=== PATIENT | female | born 1980 | race Caucasian/White ===

== ENCOUNTER 2018-05-25 10:32 | Inpatient (IN) | payer OTHER ==
[2018-05-25] MEDS ORDERED: LACTATED RINGER'S 500 ML IV (10:55)
[2018-05-25] MEDS ORDERED: MISOPROSTOL 200 MCG TAB PR ×2 (11:00→17:30)
[2018-05-25] MEDS ORDERED: OXYTOCIN 30 UNITS/LR 500 ML IV ×2 (11:00→17:30)
[2018-05-25] MEDS ORDERED: METHYLERGONOVINE 0.2 MG INJ IM ×2 (11:00→17:30)
[2018-05-25] MEDS ORDERED: CARBOPROST 250 MCG INJ IM ×2 (11:00→17:30)
[2018-05-25 11:42] LABS: WHITE BLOOD COUNT 8.9 10^3/ul (4.8-10.8)
[2018-05-25 11:43] LABS: ABNORMAL IP MESSAGE 1; HEMATOCRIT 34.2 % (37.0-47.0); HEMOGLOBIN 11.2 g/dl (12.0-16.0); MEAN CORPUSCULAR HEMOGLOBIN 29.9 pg (29.0-33.0); MEAN CORPUSCULAR HGB CONC 32.7 g/dl (32.0-37.0); MEAN CORPUSCULAR VOLUME 91.2 fl (82.0-101.0); MEAN PLATELET VOLUME 10.5 fl (7.4-10.4); PLATELET COUNT 185 10^3/UL (140-415); RED BLOOD COUNT 3.75 10^6/ul (4.20-5.40); RED CELL DISTRIBUTION WIDTH 14.2 % (11.5-14.5)
[2018-05-25 11:50] LABS: ADD MAN DIFF? YES; POSITIVE DIFF @See below
[2018-05-25 12:07] LABS: PROTIME 12.2 Sec (11.9-14.9)
[2018-05-25 12:08] LABS: PARTIAL THROMBOPLASTIN TIME 27.4 Sec (25.0-35.0)
[2018-05-25] MEDS: LACTATED RINGER'S 1,000 ML IV ×3 (12:28→17:23)
[2018-05-25 12:31] LABS: HEPATITIS B SURFACE ANTIGEN NEGATIVE (NEGATIVE)
[2018-05-25] MEDS: CITRIC ACID/SODIUM CITRATE 15 ML CUP PO (12:44)
[2018-05-25 13:09] LABS: BAND NEUTROPHILS #M 0.1 10^3/ul (0.0-0.6); BAND NEUTROPHILS % (M) 2 % (0-4); LYMPHOCYTES % (M) 12 % (15-51); MONOCYTE #M 0.1 10^3/ul (0.3-0.9); MONOCYTES % (M) 2 % (0-11); MYELOCYTES #M 0.1 10^3/ul (0.0-0.0); MYELOCYTES % (M) 2 % (0-0); PLATELET ESTIMATE NORMAL; POLYCHROMASIA 1+ (0-0); SEG NEUT #M 7.3 10^3/ul (1.6-7.5); SEGMENTED NEUTROPHILS (M) % 82 % (39-77); SMUDGE%M 12 % (0-0)
[2018-05-25] MEDS: CEFAZOLIN 2 GM/50 ML (PMX) 50 ML IV (13:55)
[2018-05-25] MEDS ORDERED: BUPIVACAINE 0.75%/DEXT (SPINAL) 2 ML INJ (14:33)
[2018-05-25] MEDS ORDERED: morphine SULFATE/PF (10 MG/10 ML) INJ (14:33)
[2018-05-25] MEDS ORDERED: ONDANSETRON 4 MG INJ (14:33)
[2018-05-25] MEDS ORDERED: METOCLOPRAMIDE 10 MG INJ (14:33)
[2018-05-25] MEDS ORDERED: KETOROLAC 30 MG INJ (14:33)
[2018-05-25] MEDS ORDERED: FENTAnyl 50 MCG/ML VIAL (14:35)
[2018-05-25] MEDS ORDERED: MEPERIDINE 25 MG INJ IV (15:30)
[2018-05-25] MEDS ORDERED: DIPHENHYDRAMINE 50 MG INJ IV ×2 (15:30)
[2018-05-25] MEDS ORDERED: morphine (1 MG/ML) 10ML SYRINGE IV ×3 (15:30)
[2018-05-25] MEDS ORDERED: morphine 2 MG INJ IV ×2 (15:30)
[2018-05-25] MEDS ORDERED: ONDANSETRON 4 MG INJ IV ×2 (15:30)
[2018-05-25] MEDS ORDERED: NALOXONE (0.4 MG/ML) INJ IV (15:30)
[2018-05-25] MEDS: KETOROLAC 30 MG INJ IV (16:26)
[2018-05-25] MEDS: OXYTOCIN 30 UNITS/LR 500 ML IV ×2 (16:57→17:23)
[2018-05-25] MEDS: morphine 2 MG INJ IV (17:17)
[2018-05-25] MEDS ORDERED: LANOLIN 7 GM TUBE TOP (17:30)
[2018-05-25] MEDS ORDERED: OXYCODONE/ACETAMINOPHEN (5/325) TAB PO (17:30)
[2018-05-25] MEDS: SENNA/DOCUSATE NA (8.6MG/50MG) TAB PO (20:49)
[2018-05-25 21:41] LABS: RAPID PLASMA REAGIN NONREACTIVE (NR)
[2018-05-26] MEDS: LACTATED RINGER'S 1,000 ML IV ×3 (02:19→17:15)
[2018-05-26 08:58] LABS: ADD MAN DIFF? NO
[2018-05-26] MEDS: SENNA/DOCUSATE NA (8.6MG/50MG) TAB PO ×2 (08:58→20:22)
[2018-05-26 09:00] LABS: BASOPHILS % 0.2 % (0.0-2.0); EOSINOPHILS % 0.3 % (0.0-7.0); HEMATOCRIT 22.3 % (37.0-47.0); HEMOGLOBIN 7.5 g/dl (12.0-16.0); LYMPHOCYTES # 1.3 10^3/ul (0.8-2.9); LYMPHOCYTES % 11.3 % (15.0-51.0); MEAN CORPUSCULAR HGB CONC 33.6 g/dl (32.0-37.0); MEAN CORPUSCULAR VOLUME 92.1 fl (82.0-101.0); MEAN PLATELET VOLUME 10.3 fl (7.4-10.4); MONOCYTE # 0.6 10^3/ul (0.3-0.9); MONOCYTES % 5.7 % (0.0-11.0); NEUTROPHIL # 8.9 10^3/ul (1.6-7.5); NEUTROPHILS % 79.6 % (39.0-77.0); PLATELET COUNT 174 10^3/UL (140-415); RED BLOOD COUNT 2.42 10^6/ul (4.20-5.40); RED CELL DISTRIBUTION WIDTH 14.6 % (11.5-14.5)
[2018-05-26 09:00] LABS: WHITE BLOOD COUNT 11.1 10^3/ul (4.8-10.8)
[2018-05-26] MEDS: PRENATAL VITAMIN PO (13:06)
[2018-05-26] MEDS: FERROUS SULFATE (EC) 325 MG TAB PO ×2 (13:06→20:22)
[2018-05-26] MEDS: FOLIC ACID 1 MG TAB PO (13:07)
[2018-05-26] MEDS: KETOROLAC 30 MG INJ IV (13:17)
[2018-05-26] MEDS: IBUPROFEN 800 MG TAB PO ×2 (14:00→21:34)
[2018-05-27] MEDS: LACTATED RINGER'S 1,000 ML IV (01:23)
[2018-05-27] MEDS: IBUPROFEN 800 MG TAB PO ×3 (05:44→22:04)
[2018-05-27 08:36] LABS: ADD MAN DIFF? NO
[2018-05-27 08:41] LABS: ABNORMAL IP MESSAGE 1; BASOPHILS % 0.2 % (0.0-2.0); EOSINOPHILS # 0.2 10^3/ul (0.0-0.5); LYMPHOCYTES # 1.7 10^3/ul (0.8-2.9); MEAN CORPUSCULAR HEMOGLOBIN 30.2 pg (29.0-33.0); MEAN CORPUSCULAR HGB CONC 32.6 g/dl (32.0-37.0); MEAN CORPUSCULAR VOLUME 92.7 fl (82.0-101.0); MEAN PLATELET VOLUME 10.3 fl (7.4-10.4); MONOCYTE # 0.8 10^3/ul (0.3-0.9); MONOCYTES % 7.8 % (0.0-11.0); NEUTROPHIL # 7.1 10^3/ul (1.6-7.5); NEUTROPHILS % 70.1 % (39.0-77.0); PLATELET COUNT 156 10^3/UL (140-415); RED BLOOD COUNT 2.05 10^6/ul (4.20-5.40); RED CELL DISTRIBUTION WIDTH 14.7 % (11.5-14.5)
[2018-05-27 08:41] LABS: WHITE BLOOD COUNT 10.1 10^3/ul (4.8-10.8)
[2018-05-27 08:45] LABS: HEMOGLOBIN 6.2 g/dl (12.0-16.0); POSITIVE DIFF @See below
[2018-05-27] MEDS: SENNA/DOCUSATE NA (8.6MG/50MG) TAB PO ×2 (09:00→22:05)
[2018-05-27] MEDS: PRENATAL VITAMIN PO (09:36)
[2018-05-27] MEDS: FERROUS SULFATE (EC) 325 MG TAB PO ×3 (09:37→22:04)
[2018-05-27] MEDS: FOLIC ACID 1 MG TAB PO (09:37)
[2018-05-27 14:31] LABS: ADD MAN DIFF? NO
[2018-05-27 14:32] LABS: ABNORMAL IP MESSAGE 1; BASOPHILS % 0.3 % (0.0-2.0); EOSINOPHILS # 0.2 10^3/ul (0.0-0.5); HEMATOCRIT 20.7 % (37.0-47.0); LYMPHOCYTES # 1.9 10^3/ul (0.8-2.9); LYMPHOCYTES % 16.3 % (15.0-51.0); MEAN CORPUSCULAR HEMOGLOBIN 31.3 pg (29.0-33.0); MEAN CORPUSCULAR HGB CONC 32.9 g/dl (32.0-37.0); MEAN CORPUSCULAR VOLUME 95.4 fl (82.0-101.0); MEAN PLATELET VOLUME 9.8 fl (7.4-10.4); MONOCYTE # 0.7 10^3/ul (0.3-0.9); NEUTROPHIL # 8.5 10^3/ul (1.6-7.5); NEUTROPHILS % 72.3 % (39.0-77.0); PLATELET COUNT 184 10^3/UL (140-415); RED BLOOD COUNT 2.17 10^6/ul (4.20-5.40); RED CELL DISTRIBUTION WIDTH 14.9 % (11.5-14.5)
[2018-05-27 14:32] LABS: WHITE BLOOD COUNT 11.8 10^3/ul (4.8-10.8)
[2018-05-27 14:34] LABS: POSITIVE DIFF @See below
[2018-05-27 14:37] LABS: HEMOGLOBIN 6.8 g/dl (12.0-16.0)
[2018-05-28] MEDS: IBUPROFEN 800 MG TAB PO ×3 (05:36→21:46)
[2018-05-28 09:14] LABS: ADD MAN DIFF? NO
[2018-05-28 09:21] LABS: ABNORMAL IP MESSAGE 1; BASOPHILS % 0.4 % (0.0-2.0); EOSINOPHILS # 0.4 10^3/ul (0.0-0.5); EOSINOPHILS % 4.1 % (0.0-7.0); HEMATOCRIT 20.8 % (37.0-47.0); LYMPHOCYTES # 1.9 10^3/ul (0.8-2.9); LYMPHOCYTES % 18.8 % (15.0-51.0); MEAN CORPUSCULAR HGB CONC 32.2 g/dl (32.0-37.0); MEAN CORPUSCULAR VOLUME 96.3 fl (82.0-101.0); MEAN PLATELET VOLUME 10.3 fl (7.4-10.4); MONOCYTE # 0.4 10^3/ul (0.3-0.9); MONOCYTES % 4.2 % (0.0-11.0); NEUTROPHIL # 6.8 10^3/ul (1.6-7.5); NEUTROPHILS % 68.2 % (39.0-77.0); PLATELET COUNT 170 10^3/UL (140-415); RED BLOOD COUNT 2.16 10^6/ul (4.20-5.40); RED CELL DISTRIBUTION WIDTH 14.8 % (11.5-14.5)
[2018-05-28 09:25] LABS: POSITIVE DIFF @See below
[2018-05-28 09:28] LABS: HEMOGLOBIN 6.7 g/dl (12.0-16.0)
[2018-05-28] MEDS: PRENATAL VITAMIN PO (09:29)
[2018-05-28] MEDS: FOLIC ACID 1 MG TAB PO (09:30)
[2018-05-28] MEDS: SENNA/DOCUSATE NA (8.6MG/50MG) TAB PO ×2 (09:30→20:51)
[2018-05-28] MEDS: FERROUS SULFATE (EC) 325 MG TAB PO ×3 (09:30→20:51)
[2018-05-28] MEDS: DIPHTH/TET/ACEL PERTUSS (ADULT) 0.5 ML VIAL IM* (09:30)
[2018-05-29] MEDS: IBUPROFEN 800 MG TAB PO ×2 (05:34→14:02)
[2018-05-29 08:07] LABS: ABNORMAL IP MESSAGE 1; HEMATOCRIT 22.2 % (37.0-47.0); HEMOGLOBIN 7.1 g/dl (12.0-16.0); MEAN CORPUSCULAR HEMOGLOBIN 30.9 pg (29.0-33.0); MEAN CORPUSCULAR VOLUME 96.5 fl (82.0-101.0); MEAN PLATELET VOLUME 9.8 fl (7.4-10.4); NUCLEATED RED BLOOD CELLS% 0.2 /100WBC (0.0-0.0); PLATELET COUNT 211 10^3/UL (140-415); RED CELL DISTRIBUTION WIDTH 14.8 % (11.5-14.5)
[2018-05-29 08:09] LABS: POSITIVE DIFF @See below
[2018-05-29 08:10] LABS: ADD MAN DIFF? YES
[2018-05-29] MEDS: FOLIC ACID 1 MG TAB PO (08:40)
[2018-05-29] MEDS: FERROUS SULFATE (EC) 325 MG TAB PO ×2 (08:40→14:02)
[2018-05-29] MEDS: SENNA/DOCUSATE NA (8.6MG/50MG) TAB PO (08:40)
[2018-05-29] MEDS: PRENATAL VITAMIN PO (08:40)
[2018-05-29 09:56] LABS: ANISOCYTOSIS 1+ (0-0); BAND NEUTROPHILS #M 0.5 10^3/ul (0.0-0.6); BAND NEUTROPHILS % (M) 7 % (0-4); BURR CELLS 1+ (0-0); ELLIPTO 1+ (0-0); EOSINOPHILS % (M) 8 % (0-7); LYMPHOCYTES #M 0.9 10^3/ul (0.8-2.9); LYMPHOCYTES % (M) 12 % (15-51); METAMYELOCYTES #M 0.1 10^3/ul (0.0-0.0); METAMYELOCYTES %M 2 % (0-0); MONOCYTE #M 0.3 10^3/ul (0.3-0.9); MONOCYTES % (M) 4 % (0-11); MYELOCYTES #M 0.1 10^3/ul (0.0-0.0); MYELOCYTES % (M) 2 % (0-0); PLATELET ESTIMATE NORMAL; POLYCHROMASIA 2+ (0-0); SEG NEUT #M 5.2 10^3/ul (1.6-7.5); SEGMENTED NEUTROPHILS (M) % 65 % (39-77); SMUDGE%M 12 % (0-0)
[2018-05-29] MEDS: OXYCODONE/ACETAMINOPHEN (5/325) TAB PO (11:54)
== END 2018-05-29 16:40 | disposition home or self-care (01) | DRG 765 ==
LOC: L-D 10:32 → PP1 17:28
PROVIDERS: Obstetrics & Gynecology
PROC: 10D00Z1 Extraction of Products of Conception, Low, Open Approach (ICD-10-PCS; principal; 2018-05-25 12:30)
PROC: 3E033VJ Introduction of Other Hormone into Peripheral Vein, Percutaneous Approach (ICD-10-PCS; 2018-05-25 12:30)
DX: O34.211 Maternal care for low transverse scar from previous cesarean delivery (principal); D62 Acute posthemorrhagic anemia; O36.5930 Maternal care for other known or suspected poor fetal growth, third trimester, not applicable or unspecified; O99.02 Anemia complicating childbirth; Z3A.38 38 weeks gestation of pregnancy; Z37.0 Single live birth
CPT/HCPCS: 85025; 85610; 85730; 86592; 86850; 86900; 86901; 87340; 88307; 99464